=== PATIENT | female | born 1990 | race Caucasian/White ===

== ENCOUNTER 2019-03-19 19:36 | Emergency (ER) | payer MEDICAID ==
[~2019-03-19] VITALS: Ht 162.6 cm; Wt 71.4 kg
[~2019-03-19 19:36] MED LIST: CEPH-443 PO; IBUP-1542 PO
[2019-03-19 20:01] VITALS: Ht 162.6 cm; Wt 71.4 kg
[2019-03-19] MEDS ORDERED: KETOROLAC 30 MG INJ IV STA (20:29)
[2019-03-19] MEDS ORDERED: CEFTRIAXONE 1 GM/50 ML (PMX) 50 ML IVPB ONE (22:30)
[2019-03-19 22:54] VITALS: BP 108/75; PULSE 74; RESP 20
== END 2019-03-19 22:55 | disposition home or self-care (01) ==
LOC: FTE 19:36
DX: N30.01 Acute cystitis with hematuria (principal)
CPT/HCPCS: 36415; 74176; 80053; 81001; 83690; 84703; 85025; 87591; 96374; 96375; J0696; J1885; Z7502